=== PATIENT | male | born 1990 | race Two or more races ===

== ENCOUNTER 2022-11-03 02:57 | Emergency (ER) | payer BC, OTHER ==
[~2022-11-03] VITALS: Ht 182.9 cm; Wt 100.0 kg
[~2022-11-03 02:57] MED LIST: ONDA8TAB9 PO
[2022-11-03] MEDS ORDERED: ondansetron 4mg rapidly disintigrating tab PO ONE (03:20)
[2022-11-03] MEDS ORDERED: LIDOcaine Viscous 15ml cup TP ONE (03:20)
[2022-11-03] MEDS ORDERED: mag hydrox/Alum hydrox/simeth 30ml oral suspension PO ONE (03:20)
[2022-11-03 03:54] LABS: BASOPHILS # (AUTO) 0.1 X10'3 (0-0.2); EOSINOPHILS # (AUTO) 0.4 X10'3 (0-0.9); EOSINOPHILS % (AUTO) 4.9 % (0-6); HEMATOCRIT 50.5 % (42.0-52.0); HEMOGLOBIN 17.6 g/dl (14.0-17.9); LYMPHOCYTES # (AUTO) 2.4 X10'3 (1.1-4.8); LYMPHOCYTES % (AUTO) 26.4 % (21-51); MEAN CORPUSCULAR HEMOGLOBIN 32.3 PG (27.0-31.0); MEAN CORPUSCULAR HGB CONC 34.9 g/dL (33.0-36.5); MEAN CORPUSCULAR VOLUME 92.3 FL (78-98); MEAN PLATELET VOLUME 9.2 FL (7.4-10.4); MONOCYTES % (AUTO) 10.9 % (2-12); NEUTROPHILS # (AUTO) 5.1 X10'3 (1.8-7.7); NEUTROPHILS % (AUTO) 56.8 % (42-75); PLATELET COUNT 241 X10'3 (140-440); RED BLOOD COUNT 5.47 X10'6 (4.70-6.10); RED CELL DISTRIBUTION WIDTH 13.9 % (11.5-14.5)
[2022-11-03 04:05] LABS: ALANINE AMINOTRANSFERASE 46 U/L (12-78); ALBUMIN 4.1 G/DL (3.4-5.0); ALBUMIN/GLOBULIN RATIO 1.2 (1.1-1.5); ALKALINE PHOSPHATASE 62 IU/L (46-116); ANION GAP 4 (8-16); ASPARTATE AMINO TRANSFERASE 39 U/L (10-37); BILIRUBIN,TOTAL 0.7 MG/DL (0.1-1.0); BLOOD UREA NITROGEN 11 MG/DL (7-18); BUN/CREATININE RATIO 8.3 (10.0-20.0); CALCIUM 8.9 MG/DL (8.5-10.1); CHLORIDE 104 MMOL/L (99-107); CREATININE 1.33 MG/DL (0.60-1.10); GLUCOSE 122 MG/DL (70-104); LIPASE 107 U/L (73-393); POTASSIUM 4.7 MMOL/L (3.5-5.1); SODIUM 140 MMOL/L (135-145); TOTAL CARBON DIOXIDE 31.9 MMOL/L (24-32); TOTAL PROTEIN 7.4 G/DL (6.4-8.2); eGFR 63 ML/MIN
[2022-11-03] MEDS ORDERED: ringers solution, lacted 1,000 ML IV ONE (05:00)
[2022-11-03] MEDS ORDERED: metoclopramide 5 mg/ml inj IV ONE (05:00)
[2022-11-03] MEDS ORDERED: morphine 4 MG/ML inj SYRINge IV ONE (05:00)
[2022-11-03] MEDS ORDERED: SUCR1TAB PO (05:22)
[2022-11-03] MEDS ORDERED: PANT20TA18 PO (05:22)
[2022-11-03 06:58] VITALS: BP 96/58
== END 2022-11-03 07:02 | disposition home or self-care (01) ==
LOC: ER 02:58
DX: R10.13 Epigastric pain (principal); K21.9 Gastro-esophageal reflux disease without esophagitis; F17.200 Nicotine dependence, unspecified, uncomplicated
CPT/HCPCS: 36415; 80053; 83690; 85025; 96361; 96374; 96375; 99284; J2270; J2765; J7120; J7030

== ENCOUNTER 2022-12-16 16:59 | Inpatient (IN) | payer OTHER ==
[~2022-12-16] VITALS: Ht 182.9 cm; Wt 100.0 kg
[~2022-12-16 16:59] MED LIST changes: +PANT20TA18 PO; +SUCR1TAB PO
[2022-12-16 17:51] LABS: BASOPHILS # (AUTO) 0.1 X10'3 (0-0.2); BASOPHILS % (AUTO) 0.8 % (0-1); EOSINOPHILS # (AUTO) 4.7 X10'3 (0-0.9); EOSINOPHILS % (AUTO) 39.7 % (0-6); HEMATOCRIT 53.6 % (42.0-52.0); LYMPHOCYTES # (AUTO) 1.6 X10'3 (1.1-4.8); LYMPHOCYTES % (AUTO) 13.6 % (21-51); MEAN CORPUSCULAR HEMOGLOBIN 31.1 PG (27.0-31.0); MEAN CORPUSCULAR HGB CONC 34.4 g/dL (33.0-36.5); MEAN CORPUSCULAR VOLUME 90.5 FL (78-98); MONOCYTES # (AUTO) 0.7 X10'3 (0-0.9); MONOCYTES % (AUTO) 6.1 % (2-12); NEUTROPHILS # (AUTO) 4.7 X10'3 (1.8-7.7); NEUTROPHILS % (AUTO) 39.8 % (42-75); PLATELET COUNT 243 X10'3 (140-440); RED BLOOD COUNT 5.93 X10'6 (4.70-6.10); RED CELL DISTRIBUTION WIDTH 13.8 % (11.5-14.5); WHITE BLOOD COUNT 11.9 X10'3 (4.5-11.0)
[2022-12-16 18:04] LABS: ALANINE AMINOTRANSFERASE 70 U/L (12-78); ALBUMIN 4.3 G/DL (3.4-5.0); ALBUMIN/GLOBULIN RATIO 1.3 (1.1-1.5); ALKALINE PHOSPHATASE 52 IU/L (46-116); ANION GAP 9 (8-16); ASPARTATE AMINO TRANSFERASE 71 U/L (10-37); BILIRUBIN,TOTAL 1.2 MG/DL (0.1-1.0); BLOOD UREA NITROGEN 12 MG/DL (7-18); BUN/CREATININE RATIO 8.7 (10.0-20.0); CALCIUM 9.4 MG/DL (8.5-10.1); CHLORIDE 103 MMOL/L (99-107); CREATININE 1.38 MG/DL (0.60-1.10); GLUCOSE 101 MG/DL (70-104); LIPASE 78 U/L (73-393); POTASSIUM 3.5 MMOL/L (3.5-5.1); SODIUM 140 MMOL/L (135-145); TOTAL CARBON DIOXIDE 28.5 MMOL/L (24-32); TOTAL PROTEIN 7.6 G/DL (6.4-8.2); eGFR 61 ML/MIN
[2022-12-16 18:22] LABS: PLATELET ESTIMATE NORMAL; TOTAL CELLS COUNTED 100
[2022-12-16 18:31] LABS: HEMOGLOBIN 18.4 g/dl (14.0-17.9)
[2022-12-16 19:06] LABS: CLARITY,URINE SLIGHTLY CLOUDY (Clear); COLOR,URINE YELLOW (Yellow); GLUCOSE, URINE NEGATIVE (Neg); KETONES,URINE TRACE mg/dl (Neg); LEUKOCYTE ESTERASE ,URINE NEGATIVE (Neg); NITRITES, URINE NEGATIVE (Neg); OCCULT BLOOD,URINE NEGATIVE (Neg); PROTEIN,URINE TRACE mg/dl (Neg); UROBILINOGEN,URINE 0.2 E.U/dL (0.2-1.0)
[2022-12-16 19:12] LABS: UA COLLECTION TYPE VOIDED
[2022-12-16 19:13] LABS: MUCUS STRANDS MANY /LPF (Neg); SQUAMOUS EPITHELIAL CELL,UR FEW /LPF (FEW)
[2022-12-16 19:14] LABS: HYALINE CASTS 0-3 /LPF (NEGATIVE)
[2022-12-16 19:15] LABS: BACTERIA,URINE FEW /HPF (Neg); CAL OXALATE CRYSTALS 4+ /HPF (NEGATIVE)
[2022-12-16 19:16] LABS: RBC,URINE 0-2 /HPF (0-2); WBC,URINE 0-4 /HPF (0-4)
[2022-12-16] MEDS ORDERED: piperacillin/tazo 3.375gm/50ml 50 ML IV ONE (19:20)
[2022-12-16] MEDS ORDERED: normal saline 1000ml 1,000 ML IV ONE ×2 (19:20)
[2022-12-16] MEDS ORDERED: morphine 4 MG/ML inj SYRINge IV ONE (19:20)
[2022-12-16] MEDS ORDERED: ondansetron/PF 4mg/2ml inj IV ONE (19:20)
[2022-12-16] MEDS ORDERED: magnesium 4gm in 100ml NS 100 ML IV PRN (21:30)
[2022-12-16] MEDS ORDERED: acetaminophen 325mg tablet PO PRN (21:30)
[2022-12-16] MEDS ORDERED: ondansetron/PF 4mg/2ml inj IV PRN (21:30)
[2022-12-16] MEDS ORDERED: potassium Cl 20 mEq SR tablet PO PRN ×2 (21:30)
[2022-12-16] MEDS ORDERED: magnesium Cl slow-release 64mg tablet PO PRN (21:30)
[2022-12-16] MEDS ORDERED: magnesium 2GM in 50ml NS 50 ML IV PRN (21:30)
[2022-12-16] MEDS ORDERED: potassium Cl 40MEQ/1/2NS 520ml 520 ML IV PRN (21:30)
[2022-12-16] MEDS ORDERED: OMEP40CA21 PO (21:53)
[2022-12-16] MEDS ORDERED: RIFA550T PO (21:53)
[2022-12-16] MEDS ORDERED: TEST200V33 SQ (21:53)
[2022-12-16] MEDS: normal saline 1000ml 1,000 ML IV SCH (22:22)
[2022-12-16] MEDS: morphine 2 MG/ML inj. syringe IV PRN (22:25)
[2022-12-17] VITALS (22 sets, daily range): BP systolic 64–189; BP diastolic 56–116; PULSE 55–99; RESP 12–18; TEMP 96.5–98.2; O2SAT 95–100
[2022-12-17] MEDS: piperacillin/tazo 3.375gm/50ml 50 ML IV SCH ×3 (03:57→20:09)
--- NOTE | 2022-12-17 06:40 | NUR ---
Problems reprioritized. Patient report given, questions answered & plan of care reviewed with FADIA DE ANDA. Addendum: 12/17/22 at 0652 by Henna Akins RN PT NPO RESTING COMFORTABLY
[2022-12-17 07:21] LABS: BASOPHILS % (AUTO) 0.4 % (0-1); EOSINOPHILS # (AUTO) 5.3 X10'3 (0-0.9); EOSINOPHILS % (AUTO) 43.9 % (0-6); HEMATOCRIT 47.1 % (42.0-52.0); HEMOGLOBIN 16.1 g/dl (14.0-17.9); LYMPHOCYTES # (AUTO) 2.1 X10'3 (1.1-4.8); LYMPHOCYTES % (AUTO) 17.5 % (21-51); MEAN CORPUSCULAR HEMOGLOBIN 31.6 PG (27.0-31.0); MEAN CORPUSCULAR HGB CONC 34.3 g/dL (33.0-36.5); MEAN CORPUSCULAR VOLUME 92.3 FL (78-98); MEAN PLATELET VOLUME 9.2 FL (7.4-10.4); MONOCYTES # (AUTO) 0.6 X10'3 (0-0.9); MONOCYTES % (AUTO) 5.4 % (2-12); NEUTROPHILS # (AUTO) 3.9 X10'3 (1.8-7.7); NEUTROPHILS % (AUTO) 32.8 % (42-75); PLATELET COUNT 172 X10'3 (140-440); WHITE BLOOD COUNT 11.9 X10'3 (4.5-11.0)
[2022-12-17 07:34] LABS: ALANINE AMINOTRANSFERASE 51 U/L (12-78); ALBUMIN 3.2 G/DL (3.4-5.0); ALBUMIN/GLOBULIN RATIO 1.2 (1.1-1.5); ALKALINE PHOSPHATASE 39 IU/L (46-116); ANION GAP 4 (8-16); ASPARTATE AMINO TRANSFERASE 62 U/L (10-37); BILIRUBIN,TOTAL 1.5 MG/DL (0.1-1.0); BLOOD UREA NITROGEN 11 MG/DL (7-18); CALCIUM 8.2 MG/DL (8.5-10.1); CHLORIDE 106 MMOL/L (99-107); CREATININE 1.37 MG/DL (0.60-1.10); GLUCOSE 84 MG/DL (70-104); MAGNESIUM 1.7 MG/DL (1.5-2.4); SODIUM 139 MMOL/L (135-145); TOTAL CARBON DIOXIDE 29.1 MMOL/L (24-32); TOTAL PROTEIN 5.8 G/DL (6.4-8.2); eGFR 61 ML/MIN
[2022-12-17] MEDS: normal saline 1000ml 1,000 ML IV SCH ×2 (07:41→20:20)
[2022-12-17] MEDS: K and/or MAG REPLACEMENT MC SCH ×2 (07:43→20:26)
[2022-12-17] MEDS: sucralfate 1 gm tablet PO SCH ×4 (08:00→23:52)
[2022-12-17] MEDS: rifaximin 550mg tablet PO SCH ×4 (08:00→21:00)
[2022-12-17] MEDS: pantoprazole 40mg Tablet.DR PO SCH (08:01)
[2022-12-17 10:23] LABS: TOTAL CELLS COUNTED 100
[2022-12-17 10:25] LABS: LARGE PLATELETS FEW; PLATELET ESTIMATE NORMAL
[2022-12-17] MEDS ORDERED: ondansetron/PF 4mg/2ml inj IV PRN (16:45)
[2022-12-17] MEDS ORDERED: morphine 2 MG/ML inj. syringe IV PRN (16:45)
[2022-12-17] MEDS ORDERED: ringers solution, lacted 1,000 ML IV SCH (16:45)
[2022-12-17] MEDS ORDERED: meperidine/PF 25mg/ml syringe IV PRN ×3 (16:45)
[2022-12-17] MEDS ORDERED: proCHLORperazine 10 MG/2 ml inj IV PRN (16:45)
[2022-12-17] MEDS ORDERED: sevoflurane 250ml liquid IH ONE (16:56)
[2022-12-17] MEDS ORDERED: rocuronium 10mg/ml inj IV ONE (16:57)
[2022-12-17] MEDS ORDERED: midazolam 1 mg/ML 2ml injection ONE (16:57)
[2022-12-17] MEDS ORDERED: fentaNYL/PF 50MCG/1 ML 2ML syringe ONE (16:57)
[2022-12-17] MEDS ORDERED: propofol inj 20 ML IV ONE (16:57)
[2022-12-17] MEDS ORDERED: BUPIVAcaine/PF 2.5 mg/ml (0.25%) 30ml vial ONE (16:57)
[2022-12-17] MEDS ORDERED: BUPIVAcaine/PF 2.5 mg/ml (0.25%) 30ml vial IJ ONE (17:33)
[2022-12-17] MEDS ORDERED: glycopyrrolate 0.2mg/ml inj ONE (17:48)
[2022-12-17] MEDS ORDERED: neostigmine methylsulfate 1 MG/ML 10ml vial ONE (17:48)
[2022-12-17] MEDS ORDERED: ketorolac trometh. 30mg/ml inj. IV ONE (18:10)
[2022-12-17] MEDS ORDERED: acetaminophen 1,000mg/100ml IV 100 ML IV SCH (18:10)
[2022-12-17] MEDS: morphine 4 MG/ML inj SYRINge IV PRN ×2 (18:16→18:33)
--- NOTE | 2022-12-17 18:53 | NUR ---
REPORT GIVEN AND ALL QUESTIONS ANSWERED. PATIENT TRANSFERRED PCU. LABELED BELONGINGS PRESENT AND DELIVERED TO ROOM. RN PRESENT TO ASSESS PATIENT. ALL CRITERIA FOR TRANSFER BACK TO THE FLOOR HAS BEEN ACHIEVED. VSS. PAIN AT A TOLERABLE LEVEL. BED LOW, CALL LIGHT PRESENT AND 2 RAILS DOWN. SHANNAN PYLE AWARE THAT PATIENT HAS ARRIVED AND PRESENT TO ASSIST IN SET UP UPON ARRIVAL AND TO ACCEPT CARE OF PATIENT. Addendum: 12/17/22 at 8 by Luis Alfredo Marcelino - FADIA RN Amended: Links added.
--- NOTE | 2022-12-17 19:00 | NUR ---
Patient in room PCU 3024. I have received report from [] and had the opportunity to ask questions and assume patient care.
--- NOTE | 2022-12-17 19:00 | NUR ---
Patient in room PCU 3024B. I have received report from Luis Alfredo LOAIZA, R/t Pt. S/p Cholecycectomy, Pt. is on Post Op. VS at this time Q15 x1 hr VSS, No S/Sx of Distress noted, PRN RX Pain medications seem effective at this time, Pt. reportable a tolerable pain level, This TRANSFER AND [employer]MPHOU[employer] OPERATOR CHIEF Assisted Luis Alfredo LOAIZA in Getting Pt. Sittuated in room S/p Cholecysectomy Surgery, This TRANSFER AND PUMPHOU[employer] OPERATOR CHIEF had the opportunity to ask questions and assume patient care. Pt is Currently resting in bed call light and H2o in Reach, Will Continue to be monitored.
[2022-12-17] MEDS: morphine 2 MG/ML inj. syringe IV PRN ×2 (20:09→23:40)
[2022-12-18] VITALS (12 sets, daily range): BP systolic 139–169; BP diastolic 78–90; PULSE 61–88; RESP 16–18; TEMP 97–99.2; O2SAT 97–100
[2022-12-18] MEDS: normal saline 1000ml 1,000 ML IV SCH (03:30)
[2022-12-18] MEDS: piperacillin/tazo 3.375gm/50ml 50 ML IV SCH ×2 (04:38→11:48)
[2022-12-18] MEDS: morphine 2 MG/ML inj. syringe IV PRN ×2 (04:43→07:01)
--- NOTE | 2022-12-18 06:40 | NUR ---
Patient in room PCU 3024. I have received report from SHANNAN Wall and had the opportunity to ask questions and assume patient care.
[2022-12-18] MEDS: pantoprazole 40mg Tablet.DR PO SCH (07:00)
--- NOTE | 2022-12-18 07:25 | NUR ---
Problems reprioritized. Patient report given, questions answered & plan of care reviewed with Parth LOAIZA.
[2022-12-18 07:39] LABS: ALANINE AMINOTRANSFERASE 95 U/L (12-78); ALBUMIN 3.7 G/DL (3.4-5.0); ALBUMIN/GLOBULIN RATIO 1.2 (1.1-1.5); ALKALINE PHOSPHATASE 44 IU/L (46-116); ANION GAP 7 (8-16); ASPARTATE AMINO TRANSFERASE 131 U/L (10-37); BILIRUBIN,TOTAL 1.5 MG/DL (0.1-1.0); BLOOD UREA NITROGEN 6 MG/DL (7-18); BUN/CREATININE RATIO 4.6 (10.0-20.0); CALCIUM 8.7 MG/DL (8.5-10.1); CHLORIDE 103 MMOL/L (99-107); CREATININE 1.31 MG/DL (0.60-1.10); GLUCOSE 87 MG/DL (70-104); MAGNESIUM 1.7 MG/DL (1.5-2.4); POTASSIUM 3.7 MMOL/L (3.5-5.1); SODIUM 137 MMOL/L (135-145); TOTAL CARBON DIOXIDE 26.9 MMOL/L (24-32); TOTAL PROTEIN 6.7 G/DL (6.4-8.2); eGFR 64 ML/MIN
[2022-12-18 07:58] LABS: BASOPHILS % (AUTO) 0.4 % (0-1); EOSINOPHILS # (AUTO) 3.3 X10'3 (0-0.9); EOSINOPHILS % (AUTO) 26.9 % (0-6); HEMATOCRIT 48.3 % (42.0-52.0); HEMOGLOBIN 16.3 g/dl (14.0-17.9); LYMPHOCYTES # (AUTO) 1.7 X10'3 (1.1-4.8); LYMPHOCYTES % (AUTO) 14.2 % (21-51); MEAN CORPUSCULAR HEMOGLOBIN 30.8 PG (27.0-31.0); MEAN CORPUSCULAR HGB CONC 33.7 g/dL (33.0-36.5); MEAN CORPUSCULAR VOLUME 91.3 FL (78-98); MEAN PLATELET VOLUME 9.2 FL (7.4-10.4); MONOCYTES # (AUTO) 0.7 X10'3 (0-0.9); NEUTROPHILS # (AUTO) 6.5 X10'3 (1.8-7.7); NEUTROPHILS % (AUTO) 52.5 % (42-75); PLATELET COUNT 230 X10'3 (140-440); RED BLOOD COUNT 5.29 X10'6 (4.70-6.10); RED CELL DISTRIBUTION WIDTH 13.5 % (11.5-14.5); WHITE BLOOD COUNT 12.3 X10'3 (4.5-11.0)
[2022-12-18] MEDS: sucralfate 1 gm tablet PO SCH (08:00)
[2022-12-18] MEDS: rifaximin 550mg tablet PO SCH ×2 (08:00→12:33)
[2022-12-18] MEDS: K and/or MAG REPLACEMENT MC SCH (08:00)
--- NOTE | 2022-12-18 08:09 | NUR ---
Message: [id number]- Wilbert Puga- pt only has morphine 2mg q2 hr prn and needing it about 2-3 hours. can he have anything po?- Radha [id number]
[2022-12-18] MEDS: HYDROcodone/acetaminophen 10/325mg tab PO PRN ×2 (09:01→12:49)
[2022-12-18 11:14] LABS: PLATELET ESTIMATE NORMAL; TOTAL CELLS COUNTED 100
--- NOTE | 2022-12-18 14:06 | NUR ---
Patient alert and oriented in no apparent acute distress. No complaints at this time. Discussed with patient discharge instructions. Sunol script called in by Dr. Mahajan office. Called to Dr. Reese office for alejandrofrkrzsyztof per Dr. Reese. Message left. Patient dc'd with all personal belongings.
[2022-12-19] MEDS ORDERED: TESTOSTERONE CYPIONATE 200 MG/ML VIAL IM SCH ×2 (08:00)
== END 2022-12-18 14:00 | disposition home or self-care (01) | DRG 419 ==
LOC: ER 16:59 → ED HOLD 21:31 → EDBEDREQ 12-17 00:09 → PCU 3S 12-17 00:30
PROVIDERS: ADMIT Internal Medicine; ATTEND Family Medicine
PROC: 0FT44ZZ Resection of Gallbladder, Percutaneous Endoscopic Approach (ICD-10-PCS; principal; 2022-12-17 16:56)
DX: K80.00 Calculus of gallbladder with acute cholecystitis without obstruction (principal); K21.9 Gastro-esophageal reflux disease without esophagitis; D75.1 Secondary polycythemia; Z90.49 Acquired absence of other specified parts of digestive tract
CPT/HCPCS: 99285; Z7506; Z7508; 36415; 76700; 80053; 81001; 82948; 83690; 83735; 84132; 85007; 85025; 87081; A4215; A4618; A7000; G0378; J0131; J1885; J2250; J2270; J2405; J2543; J2704; J2710; J3010; J3490; J7030; J7120